=== PATIENT | female | born 1940 | race Caucasian/White ===

== ENCOUNTER → 2024-02-19 12:32 | Outpatient (REF) | payer OTHER, SELFPAY | LOC: EMG 12:32 | PROVIDERS: ATTENDING PHYSICIAN Orthopaedic Surgery Hand Surgery; FAMILY PHYSICIAN Nurse Practitioner Family | DX: G56.03 Carpal tunnel syndrome, bilateral upper limbs (principal) | CPT/HCPCS: 95886; 95911 ==